=== PATIENT | female | born 1975 | race Two or more races ===

== ENCOUNTER 2022-03-15 18:05 | Emergency (ER) | payer OTHER ==
[~2022-03-15] VITALS: Ht 157.5 cm; Wt 71.2 kg
[2022-03-15] MEDS ORDERED: AZITHROMYCIN1 GM PO (22:19)
[2022-03-15] MEDS ORDERED: BUDEO.25 IH (22:19)
== END 2022-03-15 22:26 | disposition home or self-care (01) ==
LOC: ER 18:05
DX: U07.1 COVID-19 (principal); J06.9 Acute upper respiratory infection, unspecified

== ENCOUNTER → 2022-09-28 | Emergency (ER) | payer OTHER ==
[~2022-09-28] VITALS: Ht 157.5 cm; Wt 72.6 kg
[~2022-09-28] MED LIST: AZITHROMYCIN1 GM PO; BUDEO.25 IH
== END | disposition home or self-care (01) ==
LOC: ER 09:21
DX: I20.8 Other forms of angina pectoris (principal); Z20.828 Contact with and (suspected) exposure to other viral communicable diseases

== ENCOUNTER 2023-09-23 06:52 | Emergency (ER) | payer OTHER ==
[~2023-09-23] VITALS: Ht 154.9 cm; Wt 72.6 kg
[2023-09-23] MEDS ORDERED: SYNTHROID100 MCG PO (07:16)
== END 2023-09-23 10:16 | disposition home or self-care (01) ==
LOC: ER 06:52
DX: J06.9 Acute upper respiratory infection, unspecified (principal); Z20.822 Contact with and (suspected) exposure to COVID-19

== ENCOUNTER 2024-07-28 11:47 | Inpatient (IN) | payer OTHER ==
[~2024-07-28] VITALS: Ht 157.5 cm; Wt 68.9 kg
[~2024-07-28 11:47] MED LIST changes: +SYNTHROID100 MCG PO
[2024-07-28] MEDS ORDERED: 0.9 % SODIUM CHLORIDE 500 ML IV SCH (13:30)
[2024-07-28 13:53] LABS: HEMATOCRIT 29.7 % (36.0-45.00); HEMOGLOBIN 9.4 g/dL (12.0-15.00); MEAN CELL VOLUME 63.7 fL (80.00-100.00); MEAN CORPUSCULAR HEMOGLOBIN 20.1 pg (27.00-32.0); MEAN CORPUSCULAR HGB CONC 31.6 g/dl (32.0-36.0); PLATELET COUNT 324 K/uL (150-450); RED BLOOD COUNT 4.66 M/uL (4.00-6.00); RED CELL DISTRIBUTION WIDTH 19.3 % (11.5-14.5)
[2024-07-28 14:39] LABS: ALBUMIN 3.9 gm/dL (3.4-5.0); BILIRUBIN TOTAL 1.02 mg/dL (0.3-1.2); CALCIUM 8.9 mg/dL (8.5-10.1); CREATININE SERUM 0.62 mg/dL (0.55-1.02); FREE TRIODOTIRONINE 2.42 pg/ml (2.18-3.98); GFR 102.31; GLOBULINA 3.5 G/DL (2.4-3.5); POTASSIUM 3.18 mEq/L (3.5-5.1); T4 FREE 0.8 NG/ML (0.76-1.46); T4 TOTAL 7.16 UG/DL (4.8-13.9); TOTAL PROTEIN 7.4 gm/dL (6.4-8.2)
[2024-07-28 15:08] LABS: PH,URINE 7.5 (5.0-8.0); URINE APPEARANCE Clear; URINE BILIRRUBIN Negative (NEGATIVE); URINE COLOR Yellow; URINE GLUCOSE Negative (NEGATIVE); URINE KETONE Trace (NEGATIVE); URINE LEUKOCYTE Negative; URINE NITRATE Negative; URINE PROTEIN Negative (NEGATIVE); URINE UROBILINOGEN 0.2 E.U./dl
[2024-07-28 15:12] LABS: URINE BACTERIA 1728.5 uL (0.0-1933); URINE EPITHELIAL CELLS 85.7 uL (0.0-38.8); URINE RBC 20.9 uL (0.0-20.8); URINE WBC 14.6 uL (0.0-23.2)
[2024-07-28 15:24] LABS: URINE BLOOD Trace; URINE CAST 0.15 uL (0.0-1.40)
[2024-07-28] MEDS ORDERED: ACETAMINOPHEN 500 MG GEL..CAP PO ONE ×2 (18:00→20:09)
[2024-07-28] MEDS ORDERED: DICYCLOMINE HCL 20 MG TABLET PO ONE (18:00)
[2024-07-28] MEDS ORDERED: ONDANSETRON HCL 4 MG in 0.9 % SODIUM CHLORIDE 50 ML IV ONE (18:00)
[2024-07-28] MEDS ORDERED: POTASSIUM BICARBONATE/CIT AC 25 MEQ TABLET.EFF PO ONE (18:00)
[2024-07-28] MEDS ORDERED: FAMOTIDINE/PF 20 MG/2 ML VIAL IV PUSH ONE (18:00)
[2024-07-28] MEDS ORDERED: SUCRALFATE 1 G TABLET PO ONE (18:00)
[2024-07-28] MEDS ORDERED: ONDANSETRON HCL 2 MG/ML VIAL ONE (20:09)
[2024-07-28] MEDS ORDERED: FAMOTIDINE/PF 20 MG/2 ML VIAL ONE (20:10)
[2024-07-28] MEDS ORDERED: DICYCLOMINE HCL 10 MG CAPSULE PO ONE (20:10)
[2024-07-28] MEDS ORDERED: MORPHINE SULFATE 2 MG/ML CARTRIDGE IV SCH (20:36)
[2024-07-28] MEDS ORDERED: POTASSIUM CHLORIDE 20MEQ/100ML H2O PB IV ONE ×2 (20:45→22:39)
[2024-07-28] MEDS ORDERED: ACETAMINOPHEN 500 MG GEL..CAP PO PRN (20:45)
[2024-07-28] MEDS ORDERED: PIPERACILLIN/TAZOBACTAM SODIUM 3.375 GM VIAL IV ONE (22:39)
[2024-07-28 23:29] LABS: INR 1.03; PARTIAL THROMBOPLASTIN TIME 29.6 SECONDS (22.0-34.0); PROTHROMBIN TIME 11.2 SECONDS (9.0-11.5)
[2024-07-28 23:43] VITALS: BP 114/75; O2SAT 99
[2024-07-29] MEDS ORDERED: PIPERACILLIN/TAZOBACTAM SODIUM 3.375 GM in DEXTROSE 5 % IN WATER 100 ML IV SCH
[2024-07-29 04:14] VITALS: BP 114/75; O2SAT 98
[2024-07-29] MEDS ORDERED: LEVOTHYROXINE SODIUM 100 MCG TABLET PO SCH (06:00)
[2024-07-29 08:00] VITALS: BP 121/68; O2SAT 99
[2024-07-29] MEDS ORDERED: FAMOTIDINE/PF 20 MG in 0.9 % SODIUM CHLORIDE 8 ML IV PUSH SCH (09:00)
[2024-07-29 10:12] LABS: MEAN CORPUSCULAR HGB CONC 32.6 g/dl (32.0-36.0); PLATELET COUNT 249 K/uL (150-450); RED BLOOD COUNT 3.71 M/uL (4.00-6.00); RED CELL DISTRIBUTION WIDTH 19.2 % (11.5-14.5)
[2024-07-29 10:14] LABS: HEMATOCRIT 23.2 % (36.0-45.00); HEMOGLOBIN 7.6 g/dL (12.0-15.00); MEAN CELL VOLUME 62.6 fL (80.00-100.00); MEAN CORPUSCULAR HEMOGLOBIN 20.4 pg (27.00-32.0)
[2024-07-29 11:06] LABS: ALBUMIN 3.2 gm/dL (3.4-5.0); BILIRUBIN TOTAL 0.67 mg/dL (0.3-1.2); CALCIUM 8.2 mg/dL (8.5-10.1); CREATININE SERUM 0.72 mg/dL (0.55-1.02); GFR 86.09; GLOBULINA 2.6 G/DL (2.4-3.5); MAGNESIUM 1.9 mg/dL (1.8-2.4); POTASSIUM 3.68 mEq/L (3.5-5.1); TOTAL PROTEIN 5.8 gm/dL (6.4-8.2)
[2024-07-29 16:00] VITALS: BP 126/78; O2SAT 100
[2024-07-29] MEDS ORDERED: MORPHINE SULFATE 2 MG/ML CARTRIDGE IV PRN (21:00)
[2024-07-30] VITALS: BP 143/97; O2SAT 98
[2024-07-30 02:12] LABS: HEMATOCRIT 26.7 % (36.0-45.00); MEAN CORPUSCULAR HGB CONC 32.3 g/dl (32.0-36.0); PLATELET COUNT 202 K/uL (150-450); RED CELL DISTRIBUTION WIDTH 21.5 % (11.5-14.5)
[2024-07-30 02:22] LABS: HEMOGLOBIN 8.6 g/dL (12.0-15.00); MEAN CELL VOLUME 66.8 fL (80.00-100.00); MEAN CORPUSCULAR HEMOGLOBIN 21.5 pg (27.00-32.0)
[2024-07-30 06:14] VITALS: BP 154/78; O2SAT 96
[2024-07-30] MEDS ORDERED: DEXTROSE 5%-WATER 100ML IV.SOLN ONE (07:57)
[2024-07-30 08:42] VITALS: BP 138/72; O2SAT 96
[2024-07-30 16:00] VITALS: BP 154/80; O2SAT 100
[2024-07-31 00:08] VITALS: BP 129/74; O2SAT 96
[2024-07-31] MEDS ORDERED: 0.9 % SODIUM CHLORIDE 10 ML VIAL IJ ONE (00:49)
[2024-07-31 08:19] VITALS: BP 160/83; O2SAT 97
[2024-07-31] MEDS ORDERED: GINGER250 MG PO (11:42)
[2024-07-31] MEDS ORDERED: GINKGO BILOBA30 MG PO (11:42)
[2024-07-31] MEDS ORDERED: MAGNESIUM500 MG (11:43)
[2024-07-31] MEDS ORDERED: TUMS200 MG PO (11:43)
[2024-07-31] MEDS ORDERED: NASAL MIST126 ML (11:43)
[2024-07-31] MEDS ORDERED: COCONUT OIL (11:43)
[2024-07-31] MEDS ORDERED: FUROsemide 20 MG/2 ML VIAL IV SCH (12:00)
[2024-07-31 13:40] LABS: HEMATOCRIT 31.2 % (36.0-45.00); MEAN CORPUSCULAR HEMOGLOBIN 21.5 pg (27.00-32.0); MEAN CORPUSCULAR HGB CONC 32.2 g/dl (32.0-36.0); PLATELET COUNT 237 K/uL (150-450); RED BLOOD COUNT 4.66 M/uL (4.00-6.00); RED CELL DISTRIBUTION WIDTH 22.2 % (11.5-14.5)
[2024-07-31 13:41] LABS: MEAN CELL VOLUME 66.8 fL (80.00-100.00)
[2024-07-31 14:01] LABS: COL EPI 160 SECONDS (82-175)
[2024-07-31 15:06] LABS: FERRITIN 6.2 NG/ML (8-252)
[2024-07-31 15:13] LABS: TSH 3.96 uIU/mL (0.358-3.74)
[2024-07-31 15:24] LABS: FOLIC ACID 19.43 ng/ml (4.78-20)
[2024-07-31 16:39] VITALS: BP 128/78; O2SAT 98
[2024-07-31] MEDS ORDERED: SOD FERRIC GLUC COMPLX/SUCROSE 62.5 MG/5 ML AMPUL IV SCH (17:00)
[2024-08-01 00:10] VITALS: BP 173/98; O2SAT 96
[2024-08-01 03:15] VITALS: BP 125/79
[2024-08-01 09:05] VITALS: BP 137/85; O2SAT 99
[2024-08-01 14:13] LABS: HEMOGLOBIN 12.5 g/dL (12.0-15.00); MEAN CELL VOLUME 71.6 fL (80.00-100.00); MEAN CORPUSCULAR HEMOGLOBIN 23.6 pg (27.00-32.0); PLATELET COUNT 205 K/uL (150-450)
[2024-08-01 14:16] LABS: RED CELL DISTRIBUTION WIDTH 27.3 % (11.5-14.5)
[2024-08-01 16:00] VITALS: BP 170/90; O2SAT 99
[2024-08-01 20:00] VITALS: BP 140/70
[2024-08-02 00:42] VITALS: BP 136/84; O2SAT 100
[2024-08-02 08:00] VITALS: BP 130/70; O2SAT 97
[2024-08-02 16:00] VITALS: BP 152/89; O2SAT 97
[2024-08-02] MEDS ORDERED: MORPHINE SULFATE 4 MG/ML CARTRIDGE IV PRN (21:00)
[2024-08-03 00:42] VITALS: BP 137/82; O2SAT 98
[2024-08-03 08:22] VITALS: BP 140/75; O2SAT 97
[2024-08-03 16:52] VITALS: BP 159/79; O2SAT 97
[2024-08-03] MEDS ORDERED: ONDANSETRON HCL 2 MG/ML VIAL IV PRN (18:15)
[2024-08-03] MEDS ORDERED: CEFAZOLIN SODIUM 1,000 MG VIAL IV ONE (19:30)
[2024-08-03] MEDS ORDERED: ACETAMINOPHEN 500 MG GEL..CAP PO SCH (20:00)
[2024-08-03] MEDS ORDERED: SUGAMMADEX SODIUM 200 MG/2 ML VIAL IV ONE (20:45)
[2024-08-03] MEDS ORDERED: GABAPENTIN 300 MG CAPSULE PO SCH (21:00)
[2024-08-03] MEDS ORDERED: MORPHINE SULFATE 4 MG/ML VIAL IV ONE ×2 (21:15→21:45)
[2024-08-04 02:49] VITALS: BP 147/83; O2SAT 99
[2024-08-04 07:30] VITALS: BP 182/86; O2SAT 96
[2024-08-04] MEDS ORDERED: LISINOPRIL 5 MG TABLET PO STA (09:11)
[2024-08-04 12:01] LABS: HEMATOCRIT 37.9 % (36.0-45.00); HEMOGLOBIN 12.4 g/dL (12.0-15.00); MEAN CELL VOLUME 71.3 fL (80.00-100.00); MEAN CORPUSCULAR HEMOGLOBIN 23.3 pg (27.00-32.0); MEAN CORPUSCULAR HGB CONC 32.7 g/dl (32.0-36.0); PLATELET COUNT 173 K/uL (150-450); RED BLOOD COUNT 5.32 M/uL (4.00-6.00)
[2024-08-04] MEDS ORDERED: 0.9 % SODIUM CHLORIDE 1,000 ML IV SCH (13:30)
[2024-08-04] MEDS ORDERED: 0.9 % SODIUM CHLORIDE 500 ML IV SCH (13:30)
[2024-08-05 13:11] LABS: hgb a 67.9 % (96.4-98.8); hgb a2 2.5 % (1.8-3.2); hgb f 0.4 % (0.0-2.0); hgb s 29.2 % (0.0)
[2024-08-06 09:11] LABS: g6pd quant 308 (127-427); rbc 4.44 x10E6/uL (3.77-5.28)
== END 2024-08-04 13:50 | disposition home or self-care (01) | DRG 419 ==
LOC: ER 11:47 → SEC-K 22:52 → SURG 22:52
PROVIDERS: Emergency Medicine; General Practice; Internal Medicine; Internal Medicine Hematology & Oncology; Student in an Organized Health Care Education/Training Program; ADMIT Internal Medicine; ATTEND Internal Medicine
PROC: BW40ZZZ Ultrasonography of Abdomen (ICD-10-PCS; 2024-07-28)
PROC: 30233N1 Transfusion of Nonautologous Red Blood Cells into Peripheral Vein, Percutaneous Approach (ICD-10-PCS; 2024-07-29)
PROC: 0FT44ZZ Resection of Gallbladder, Percutaneous Endoscopic Approach (ICD-10-PCS; principal; 2024-08-03 18:00)
DX: K80.10 Calculus of gallbladder with chronic cholecystitis without obstruction (principal); E03.9 Hypothyroidism, unspecified; D57.3 Sickle-cell trait; D50.9 Iron deficiency anemia, unspecified; D64.89 Other specified anemias; E87.6 Hypokalemia; K66.0 Peritoneal adhesions (postprocedural) (postinfection); F17.200 Nicotine dependence, unspecified, uncomplicated

== ENCOUNTER → 2025-02-05 | Emergency (ER) | payer OTHER ==
[~2025-02-05] VITALS: Ht 157.5 cm; Wt 68.0 kg
[~2025-02-05] MED LIST changes: +COCONUT OIL; +GINGER250 MG PO; +GINKGO BILOBA30 MG PO; +KETOROLAC TROMETHAMINE 60 MG VIAL IM ONE; +KETOROLAC TROMETHAMINE 60 MG VIAL IM STA; +MAGNESIUM500 MG; +NASAL MIST126 ML; +ORPHENADRINE CITRATE 30 MG/ML AMPUL IM STA; +ORPHENADRINE CITRATE 30 MG/ML AMPUL ONE; +TUMS200 MG PO
[2025-02-05 11:22] LABS: HEMATOCRIT 38.8 % (36.0-45.00); HEMOGLOBIN 13.2 g/dL (12.0-15.00); MEAN CELL VOLUME 78.3 fL (80.00-100.00); MEAN CORPUSCULAR HEMOGLOBIN 26.7 pg (27.00-32.0); MEAN CORPUSCULAR HGB CONC 34.2 g/dl (32.0-36.0); PLATELET COUNT 244 K/uL (150-450); RED BLOOD COUNT 4.95 M/uL (4.00-6.00); RED CELL DISTRIBUTION WIDTH 15.7 % (11.5-14.5)
== END | disposition home or self-care (01) ==
LOC: ER 09:15
PROVIDERS: General Practice
DX: G44.209 Tension-type headache, unspecified, not intractable (principal); E03.8 Other specified hypothyroidism